=== PATIENT | female | born 1980 | race Caucasian/White ===

== ENCOUNTER → 2017-03-27 | Outpatient (CLI) | payer BC ==
[~2017-03-27] MED LIST: BACTRIM DS TABL1 TA2 PO; LISINOPRIL10 MG PO; LORTAB 7.5-5001 TAB; MARINA IUD; PRENATAL MULITV1 TAB PO; VOLTAREN75 MG PO
--- NOTE | ~2017-03-27 | CT69 ---
[facility] A Service of [facility] & [facility] / [facility] RADIOLOGY TEXT RESULTS PATIENT: BAILEE GIL LOCATION: [facility] : 84 UNIT #: [id number] AGE: [address]: Henny Lopez MD SEX: F ORDER DR: [id number] [address] [id number] [id number] O MR#: [id number] Acc #: [id number] NAME: BAILEE GIL : 1980 SEX: F STUDY DATE/TIME: 03/27/2017 17:40 UNIT: [facility] ROOM: STUDY DESCRIPTION: CT Head W Contrast Attending Physician: Henny Lopez M.D. Ordering Physician: Astrid Lind A.P.R.N. Primary Care Physician: Henny Lopez M.D. MEDICAL IMAGING REPORT This report is preliminary unless electronic signature is present. EXAM CT of the head 03/27/2017. HISTORY The history is enlarging mass on head. Knot top of head getting bigger, pressure and pain. Started 1 year ago, over last 2 months getting worse. Migraines, getting worse. TECHNIQUE CT of the head performed with intravenous administration of 100 mL Isovue-370. This CT exam was performed with one or more of the following radiation dose reduction techniques: automatic exposure control, adjustment of mA and/or kV according to patient size, and iterative reconstruction. COMPARISON No prior CTs of head for comparison. FINDINGS The brainstem is unremarkable. The cerebellum and cerebral hemispheres show normal wiggins matter-white matter differentiation. No hemorrhage. No evidence of acute cortical ischemia. The midline structures are nondisplaced. The basal ganglia are intact. The ventricles, cisterns and sulci are normal in size and contour. There is no intra or extraaxial mass effect or abnormal intracranial fluid collection. No enhancing parenchymal abnormality is suggested in the brain. The intraorbital soft tissues are unremarkable. Visualized paranasal sinuses and mastoid air cells are clear. Examination not tailored for assessment of the vascular structures. No gross vascular abnormality is suggested. Patient describes abnormality at top of head. For further evaluation, sagittal and coronal reconstructions were requested. The pharmacy technologist has [facility] A Service of [facility] & [facility] / [facility] RADIOLOGY TEXT RESULTS PATIENT: BAILEE GIL LOCATION: [facility] : 84 UNIT #: [id number] AGE: [address]: Henny Lopez MD SEX: F ORDER DR: indicated that sagittal and coronal reconstructions are not possible due to technical factors. On the cementer oil well image for CT scan planning, there is a suggestion of localized areas of cutaneous prominence at the vertex. 2 of these are seen. Assessment is markedly limited. On this planning image, these would appear to be on the skin surface and to measure perhaps 1.2 cm in diameter by about 2-3 mm in visualized thickness. This is a very limited assessment. Please correlate with clinical examination. If it would assist in patient management, repeat examination could be performed with intention for sagittal and coronal reconstructions. Alternatively, MRI could be considered. However, given the apparent cutaneous location, physical examination and perhaps a dermatologic consultation recommended prior to additional imaging. The underlying bony structures show no suspicious abnormality. I see no subcutaneous air or radiodense foreign body. IMPRESSION 1. The brain appears normal. 2. If the patient has ongoing neurologic symptoms, consider follow up imaging. 3. No acute bony abnormality. 4. Please see complete dictation above for full discussion of patient's palpable abnormalities at the vertex of the head. On the planning image for the CT examination. There is a suggestion of 2 raised skin lesions at the vertex of the scalp measuring about 1.2 cm in diameter and perhaps 2-3 mm in visualized thickness. Assessment is extremely limited on the basis of the cementer oil well image. Please correlate with clinical examination. Consider dermatology followup. If additional imaging would assist in management, some consideration for repeat CT examination with technique for sagittal and coronal reconstructions could be considered versus MRI. Dictated by... Masood Rodriguez M.D. THIS IS AN ELECTRONICALLY VERIFIED REPORT Masood Rodriguez M.D. at 03/30/2017 2:44 PM MILES/krish TD: 03/29/2017 11:06 JOB #: [id number] MEDICAL IMAGING REPORT Page 1 of 1
[2017-03-27 17:46] LABS: POC - GFR >60.0 mL/min (>60)
== END | disposition home or self-care (01) ==
LOC: SCT 16:46
PROVIDERS: Internal Medicine
DX: R22.0 Localized swelling, mass and lump, head (principal)
CPT/HCPCS: 70460; 82565; Q9967